=== PATIENT | male | born 1965 | race Caucasian/White ===

== ENCOUNTER 2017-11-03 20:36 | Inpatient (IN) | payer BC ==
[2017-11-03] MEDS ORDERED: Lidocaine 1% with EPINEPHrine 1:100,000 50 ML MDV SUBCUT STA (21:26)
--- NOTE | 2017-11-03 21:32 | EDM.PDOC ---
ED HPI GENERAL MEDICAL PROBLEM - General Chief Complaint: Skin Complaint Stated Complaint: WENT TO CLINIC NOT GETTING BETTER Time Seen by Provider: 11/03/17 21:15 Source of Information: Reports: Patient, RN History Limitations: Reports: No Limitations - History of Present Illness INITIAL COMMENTS - FREE TEXT/NARRATIVE: 52 yo male fell on the ice recently injuring his R elbow area with a small wound resulting. Since then he has developed cellulitis and was first given cephalexin with worsening followed by Rocephin and clindamycin(both yesterday) with continued worsening. He was then today directed to come to the ER for evaluation and tx. He feels he has had fever and chills. He is not diabetic. No hx of previous cellulitis. Onset: Gradual Onset Date: 10/31/17 Duration: Day(s):, Getting Worse Location: Reports: Upper Extremity, Right Quality: Reports: Dull Severity: Moderate Improves with: Reports: None Worsens with: Reports: Other (time) Context: Reports: Other (known cellulitis) Associated Symptoms: Reports: Fever/Chills. 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: Other (see below) (antibiotics(see HPI)) right arm Pain Score (Numeric/FACES): 9 - Related Data Allergies Allergy/AdvReac Type Severity Reaction Status Date / Time Penicillins Allergy Vomiting Verified 11/03/17 21:07 Home Meds: Home Meds FLUoxetine HCl [Fluoxetine HCl] 20 mg PO BID 04/13/14 [History] Warfarin Sodium [Warfarin Sodium] 5 mg PO BEDTIME 04/13/14 [History] Cephalexin [Cephalexin] 500 mg PO QID 11/03/17 [History] Clindamycin HCl [Clindamycin HCl] 300 mg PO TID 11/03/17 [History] Past Medical History Cardiovascular History: Reports: Congenital Septal Defect Musculoskeletal History: Reports: Other (See Below) Other Musculoskeletal History: collar bone as a teen Neurological History: Reports: Concussion, CVA Psychiatric History: Reports: Anxiety Hematologic History: Reports: Anticoagulation Therapy - Infectious Disease History Infectious Disease History: Reports: Chicken Pox Social & Family History - Tobacco Use Smoking Status *Q: Never Smoker Second Hand Smoke Exposure: No - Caffeine Use Caffeine Use: Reports: Coffee - Alcohol Use Days Per Week of Alcohol Use: 2 Number of Drinks Per Day: 2 Total Drinks Per Week: 4 - Recreational Drug Use Recreational Drug Use: Yes Drug Use in Last 12 Months: No Recreational Drug Type: Reports: Marijuana/Hashish Recreational Drug Use Frequency: Not Used In Over 1 Year ED ROS GENERAL - Review of Systems Review Of Systems: See Below Constitutional: Reports: No Symptoms HEENT: Reports: No Symptoms Respiratory: Reports: No Symptoms Cardiovascular: Reports: No Symptoms GI/Abdominal: Reports: No Symptoms : Reports: No Symptoms Musculoskeletal: Reports: Joint Pain (R elbow area) Skin: Reports: Erythema (Large area spreading out from the olecranon. ) Neurological: Reports: No Symptoms ED EXAM, SKIN/RASH Exam: See Below Exam Limited By: No Limitations General Appearance: Alert, WD/WN, No Apparent Distress Eye Exam: Bilateral Eye: Normal Inspection Ears: Normal External Exam, Normal Canal, Hearing Grossly Normal Nose: Normal Inspection, Normal Mucosa, No Blood Throat/Mouth: Normal Inspection, Normal Lips, Normal Oropharynx, Normal Voice, No Airway Compromise Head: Atraumatic, Normocephalic Neck: Normal Inspection Respiratory/Chest: No Respiratory Distress, Lungs Clear, Normal Breath Sounds, No Accessory Muscle Use Cardiovascular: Regular Rate, Rhythm, No Edema GI/Abdominal: Non-Tender Back Exam: Normal Inspection Extremities: Limited Range of Motion (R elbow due to soft tissue swelling), Redness (R elbow area) Neurological: Alert, Oriented, CN II-XII Intact, Normal Cognition, No Motor/ Sensory Deficits Psychiatric: Normal Affect, Normal Mood Skin: Warm, Dry, Intact, No Rash, Erythema (with induration of the entire elbow area, suspected fluid filled R olecranon bursa. ) Location, Skin: Upper Extremity, Right Characteristics: Confluent, Erythematous Associated features: Warmth, Tenderness, Induration, Inflammation Lymphatic: No Adenopathy Course - Vital Signs Text/Narrative:: Aspirated R olecranon bursa after prep of area with Betadine and alcohol. Obtained about 2.5 ml of slightly cloudy yellow fluid. Last Recorded V/S: Last Vital Signs Temp 37.1 C 11/03/17 21:11 Pulse 94 11/03/17 21:11 Resp 16 11/03/17 21:11 BP 139/85 11/03/17 21:11 Pulse Ox 93 L 11/03/17 21:11 - Orders/Labs/Meds Orders: Active Orders 24 hr Category Date Time Status CULTURE BODY FLUID + SMEAR [RM] Stat Lab 11/03/17 21:43 Results Sodium Chloride 0.9% [Saline Flush] Med 11/03/17 21:54 Active 10 ml FLUSH ASDIRECTED PRN Vancomycin 1 gm Med 11/03/17 22:12 Active Sodium Chloride 0.9% [Normal Saline] 250 ml IV ONETIME Saline Lock Insert [OM.PC] Routine Oth 11/03/17 21:54 Ordered Medication Orders Vancomycin HCl 1 gm/ Sodium (Chloride) 250 mls @ 150 mls/hr IV ONETIME ONE Stop: 11/03/17 23:51 Last Admin: 11/03/17 22:25 Dose: 150 mls/hr Sodium Chloride (Saline Flush) 10 ml FLUSH ASDIRECTED PRN PRN Reason: Keep Vein Open Last Admin: 11/03/17 22:30 Dose: 10 ml Labs: Laboratory Tests 11/03/17 11/03/17 11/03/17 Range/Units 21:21 21:21 21:21 WBC 10.0 (4.5-11.0) K/uL RBC 4.66 (4.30-5.90) M/uL Hgb 13.7 (12.0-15.0) g/dL Hct 40.7 (40.0-54.0) % MCV 87 (80-98) fL MCH 29 (27-31) pg MCHC 34 (32-36) % Plt Count 179 (150-400) K/uL PT (9.5-12.0) sec INR (0.80-1.20) Sodium 140 (140-148) mmol/L Potassium 3.6 (3.6-5.2) mmol/L Chloride 105 (100-108) mmol/L Carbon Dioxide 21 (21-32) mmol/L Anion Gap 13.8 (5.0-14.0) mmol/L BUN 13 (7-18) mg/dL Creatinine 1.0 (0.8-1.3) mg/dL Est Cr Clr Drug Dosing 88.21 mL/min Estimated GFR (MDRD) > 60 (>60) Glucose 139 H (74-106) mg/dL Calcium 9.0 (8.5-10.1) mg/dL C-Reactive Protein 14.64 H (0.0-0.3) mg/dL 11/03/17 Range/Units 21:25 WBC (4.5-11.0) K/uL RBC (4.30-5.90) M/uL Hgb (12.0-15.0) g/dL Hct (40.0-54.0) % MCV (80-98) fL MCH (27-31) pg MCHC (32-36) % Plt Count (150-400) K/uL PT 17.8 H (9.5-12.0) sec INR 1.63 H (0.80-1.20) Sodium (140-148) mmol/L Potassium (3.6-5.2) mmol/L Chloride (100-108) mmol/L Carbon Dioxide (21-32) mmol/L Anion Gap (5.0-14.0) mmol/L BUN (7-18) mg/dL Creatinine (0.8-1.3) mg/dL Est Cr Clr Drug Dosing mL/min Estimated GFR (MDRD) (>60) Glucose (74-106) mg/dL Calcium (8.5-10.1) mg/dL C-Reactive Protein (0.0-0.3) mg/dL Meds: Medications Generic Name Dose Route Start Last Admin Trade Name Freq PRN Reason Stop Dose Admin Vancomycin HCl 1 gm/ Sodium 250 mls @ 150 mls/hr 11/03/17 22:12 11/03/17 22: 25 Chloride IV 11/03/17 23:51 150 mls/hr ONETIME ONE Administration Sodium Chloride 10 ml 11/03/17 21:54 11/03/17 22:30 Saline Flush FLUSH 10 ml ASDIRECTED PRN Administration Keep Vein Open Discontinued Medications Generic Name Dose Route Start Last Admin Trade Name Freq PRN Reason Stop Dose Admin Lidocaine/Epinephrine 3 ml 11/03/17 21:26 11/03/17 21:33 Xylocaine 1% With Epinephrine 1:100,000 SUBCUT 11/03/17 21:27 3 ml NOW STA Administration Vancomycin HCl 1 gm 11/03/17 22:00 Vancomycin IV .PHARMACY TO DOSE [facility] Departure - Departure Time of Disposition: 22:55 Disposition: Admitted As Inpatient 65 Condition: Fair Clinical Impression: Cellulitis of right elbow Olecranon bursitis Qualifiers: Laterality: right Qualified Code(s): M70.21 - Olecranon bursitis, right elbow - Discharge Information Referrals: Houston Blanco Sr, MD [Primary Care Provider] - Forms: ED Department Discharge - My Orders Last 24 Hours: My Active Orders 11/03/17 21:43 CULTURE BODY FLUID + SMEAR [RM] Stat 11/03/17 21:54 Sodium Chloride 0.9% [Saline Flush] 10 ml FLUSH ASDIRECTED PRN Saline Lock Insert [OM.PC] Routine 11/03/17 22:12 Vancomycin 1 gm Sodium Chloride 0.9% [Normal Saline] 250 ml IV ONETIME - Assessment/Plan Last 24 Hours: My Active Orders 11/03/17 21:43 CULTURE BODY FLUID + SMEAR [RM] Stat 11/03/17 21:54 Sodium Chloride 0.9% [Saline Flush] 10 ml FLUSH ASDIRECTED PRN Saline Lock Insert [OM.PC] Routine 11/03/17 22:12 Vancomycin 1 gm Sodium Chloride 0.9% [Normal Saline] 250 ml IV ONETIME
[2017-11-03] MEDS ORDERED: Sodium Chloride 0.9% 10 ML Syringe FLUSH PRN (21:54)
[2017-11-03] MEDS ORDERED: Vancomycin 1 GM SDV IV SCH ×2 (22:00→23:45)
--- NOTE | 2017-11-03 23:20 | PCM.HP ---
H&P History of Present Illness - General Date of Service: 11/03/17 Admit Problem/Dx: Source of Information: Patient, Family, Provider, RN Notes Reviewed History Limitations: Reports: No Limitations - History of Present Illness Initial Comments - Free Text/Narative: Mr. Curtis is a 52-year-old gentleman who is admitted through the emergency department for further evaluation and management of cellulitis of the right arm. Proximally 2 weeks ago he fell injuring the arm, over the past several days is noted tenderness and erythema with increased warmth. This week has been seen twice in the walk-in clinic, initially was started on Ceftin and when the infection did not improve over a period of 2 days he presented to the walk-in clinic again yesterday. At that time he was given a dose of IM Rocephin and switched to clindamycin as oral antibiotic therapy. Despite these changes there' s been further progression of the cellulitis with associated fever, chills, and sweats. Because of progression he presented to the emergency department this evening and was noted to have a relatively large area of cellulitis involving the extensor surface of the arm and extending into the upper arm as well as quite a ways into the lower arm. The olecranon bursa was enlarged and inflamed, this was aspirated in the emergency department and fluid sent for culture. He denies any previous history of MRSA or other resistant bacteria. right arm Pain Score (Numeric/FACES): 9 - Related Data Allergies/Adverse Reactions: Allergies Allergy/AdvReac Type Severity Reaction Status Date / Time Penicillins Allergy Vomiting Verified 11/03/17 21:07 Home Medications: Home Meds FLUoxetine HCl [Fluoxetine HCl] 20 mg PO BID 04/13/14 [History] Warfarin Sodium [Warfarin Sodium] 5 mg PO BEDTIME 04/13/14 [History] Cephalexin [Cephalexin] 500 mg PO QID 11/03/17 [History] Clindamycin HCl [Clindamycin HCl] 300 mg PO TID 11/03/17 [History] Past Medical History Cardiovascular History: Reports: Congenital Septal Defect Musculoskeletal History: Reports: Other (See Below) Other Musculoskeletal History: collar bone as a teen Neurological History: Reports: Concussion, CVA Psychiatric History: Reports: Anxiety Hematologic History: Reports: Anticoagulation Therapy - Infectious Disease History Infectious Disease History: Reports: Chicken Pox Social & Family History - Tobacco Use Smoking Status *Q: Never Smoker Second Hand Smoke Exposure: No - Caffeine Use Caffeine Use: Reports: Coffee - Alcohol Use Days Per Week of Alcohol Use: 2 Number of Drinks Per Day: 2 Total Drinks Per Week: 4 - Recreational Drug Use Recreational Drug Use: Yes Drug Use in Last 12 Months: No Recreational Drug Type: Reports: Marijuana/Hashish Recreational Drug Use Frequency: Not Used In Over 1 Year H&P Review of Systems - Review of Systems: Review Of Systems: See Below General: Reports: Fever, Chills, Diaphoresis, Decreased Appetite HEENT: Reports: No Symptoms Pulmonary: Reports: No Symptoms Cardiovascular: Reports: No Symptoms Gastrointestinal: Reports: No Symptoms Genitourinary: Reports: No Symptoms Musculoskeletal: Reports: No Symptoms Skin: Reports: Other (Erythema pain and swelling right arm) Psychiatric: Reports: No Symptoms Neurological: Reports: No Symptoms Hematologic/Lymphatic: Reports: No Symptoms Immunologic: Reports: No Symptoms Exam - Exam Exam: See Below - Vital Signs Vital Signs: Last Vital Signs Temp 99.3 F 11/03/17 22:53 Pulse 78 11/03/17 22:53 Resp 16 11/03/17 22:53 BP 133/86 11/03/17 22:53 Pulse Ox 94 L 11/03/17 22:53 Weight: 232 lb 12.93 oz - Exam Quality Assessment: DVT Prophylaxis General: Alert, Oriented, Cooperative, Moderate Distress HEENT: Conjunctiva Clear, Hearing Intact, Normal Nasal Septum, Posterior Pharynx Clear, Pupils Equal. No: Mucosa Moist & [place] Neck: Supple, Trachea Midline, +2 Carotid Pulse wo Bruit Lungs: Clear to Auscultation, Normal Respiratory Effort Cardiovascular: Regular Rate, Regular Rhythm, Normal S1, Normal S2. No: Systolic Murmur, Diastolic Murmur GI/Abdominal Exam: Soft, Non-Tender, No Organomegaly, No Distention Back Exam: Normal Inspection, Full Range of Motion Extremities: Other (Significant erythema inflammation and swelling extensor surface right arm) Skin: Other (As above) Neurological: Cranial Nerves Intact, Strength Equal Bilateral, Normal Speech, Normal Tone, Sensation Intact. No: Focal Deficit Neuro Extensive - Mental Status: Alert, Oriented x3, Normal Mood/Affect, Normal Cognition, Memory Intact - Patient Data Lab Results Last 24 hrs: Laboratory Results - last 24 hr 11/03/17 11/03/17 11/03/17 Range/Units 21:21 21:21 21:21 WBC 10.0 (4.5-11.0) K/uL RBC 4.66 (4.30-5.90) M/uL Hgb 13.7 (12.0-15.0) g/dL Hct 40.7 (40.0-54.0) % MCV 87 (80-98) fL MCH 29 (27-31) pg MCHC 34 (32-36) % Plt Count 179 (150-400) K/uL PT (9.5-12.0) sec INR (0.80-1.20) Sodium 140 (140-148) mmol/L Potassium 3.6 (3.6-5.2) mmol/L Chloride 105 (100-108) mmol/L Carbon Dioxide 21 (21-32) mmol/L Anion Gap 13.8 (5.0-14.0) mmol/L BUN 13 (7-18) mg/dL Creatinine 1.0 (0.8-1.3) mg/dL Est Cr Clr Drug Dosing 88.21 mL/min Estimated GFR (MDRD) > 60 (>60) Glucose 139 H (74-106) mg/dL Calcium 9.0 (8.5-10.1) mg/dL C-Reactive Protein 14.64 H (0.0-0.3) mg/dL 11/03/17 Range/Units 21:25 WBC (4.5-11.0) K/uL RBC (4.30-5.90) M/uL Hgb (12.0-15.0) g/dL Hct (40.0-54.0) % MCV (80-98) fL MCH (27-31) pg MCHC (32-36) % Plt Count (150-400) K/uL PT 17.8 H (9.5-12.0) sec INR 1.63 H (0.80-1.20) Sodium (140-148) mmol/L Potassium (3.6-5.2) mmol/L Chloride (100-108) mmol/L Carbon Dioxide (21-32) mmol/L Anion Gap (5.0-14.0) mmol/L BUN (7-18) mg/dL Creatinine (0.8-1.3) mg/dL Est Cr Clr Drug Dosing mL/min Estimated GFR (MDRD) (>60) Glucose (74-106) mg/dL Calcium (8.5-10.1) mg/dL C-Reactive Protein (0.0-0.3) mg/dL Result Diagrams: 11/03/17 21:21 11/03/17 21:21 [place] Results Last 24 hrs: Microbiology 11/03/17 21:43 Gram Stain - Final Bursa - Elbow, Right *Q Meaningful Use (ADM) - VTE *Q VTE Criteria *Q: VTE Pharmacological Contraindications *Q: High INR Value - VTE Risk Assess *Q Each Risk Factor Represents 1 Point: Age 41 - 59 years, Obesity ( BMI > 25 kg/m2 ) Total Score 1 Point Risk Factors: 2 Each Risk Factor Represents 2 Points: None Total Score 2 Point Risk Factors: 0 Each Risk Factor Represents 3 Points: None Total Score 3 Point Risk Factors: 0 Each Risk Factor Represents 5 Points: None Total Score 5 Point Risk Factors: 0 Venous Thromboembolism Risk Factor Score *Q: 2 - Stroke *Q Stroke Criteria *Q: - AMI *Q AMI Criteria *Q: Problem List Initiated/Reviewed/Updated: Yes Orders Last 24hrs: Active Orders 24 hr Category Date Time Status Patient Status Manage Transfer [TRANSFER] Routine ADT 11/03/17 23:11 Ordered CULTURE BODY FLUID + SMEAR [RM] Stat Lab 11/03/17 21:43 Results Sodium Chloride 0.9% [Saline Flush] Med 11/03/17 21:54 Active 10 ml FLUSH ASDIRECTED PRN Vancomycin 1 gm Med 11/03/17 22:12 Active Sodium Chloride 0.9% [Normal Saline] 250 ml IV ONETIME Saline Lock Insert [OM.PC] Routine Oth 11/03/17 21:54 Ordered Resuscitation Status Routine Resus Stat 11/03/17 23:13 Ordered Medication Orders Vancomycin HCl 1 gm/ Sodium (Chloride) 250 mls @ 150 mls/hr IV ONETIME ONE Stop: 11/03/17 23:51 Last Admin: 11/03/17 22:25 Dose: 150 mls/hr Sodium Chloride (Saline Flush) 10 ml FLUSH ASDIRECTED PRN PRN Reason: Keep Vein Open Last Admin: 11/03/17 22:30 Dose: 10 ml Assessment/Plan Comment:: ASSESSMENT AND PLAN CELLULITIS RIGHT ARM-involving a significant area of the extensor surface. Having failed outpatient management with appropriate oral antibiotic therapy. Question possible involvement of the olecranon bursa, drained in the emergency department. -Blood cultures and culture from bursa pending -IV fluids for hydration -Pain and antiemetic therapy as needed -Broad-spectrum IV antibiotic therapy pending culture results, vancomycin and meropenem ATRIAL SEPTAL DEFECT WITH HISTORY OF PREVIOUS CVA-on long-term oral anticoagulation with warfarin, minimal residual neurologic effect from CVA -Continue outpatient dosing of warfarin -Daily INR MAINTENANCE ISSUES -DVT prophylaxis; current therapy with warfarin should provide adequate DVT prophylaxis -GI prophylaxis; not indicated -Gupta catheter; not indicated -Nutrition; regular diet -Nicotine dependence; not required CODE STATUS-FULL CODE ADMISSION STATUS-patient will be admitted to inpatient status, expect at least a 2 night hospital stay for evaluation and management of problems as outlined above. At the time of this admission I do not reasonably expected evaluation and management of this problem will require more than a 96 hour hospital stay. DISPOSITION-anticipate discharge to home after the hospital stay. PRIMARY CARE PROVIDER-Dr. Blanco
[2017-11-03] MEDS ORDERED: Lactated Ringers 500 ML IV ONE (23:36)
[2017-11-03] MEDS ORDERED: Magnesium Hydroxide 400 MG/5 ML Susp 30 ML Cup PO PRN (23:36)
[2017-11-03] MEDS ORDERED: Ondansetron 4 MG/2 ML SDV IV PRN (23:36)
[2017-11-03] MEDS ORDERED: HYDROmorphone 0.5 MG/0.5 ML Syringe IVPUSH PRN (23:36)
[2017-11-03] MEDS ORDERED: Ibuprofen 400 MG Tab PO PRN (23:36)
[2017-11-03] MEDS ORDERED: Polyethylene Glycol 3350 Powder 17 GM Packet PO PRN (23:36)
[2017-11-04] MEDS: Acetaminophen 325 MG Tab PO PRN ×3 (00:08→20:57)
[2017-11-04] MEDS: Meropenem 1 GM in Sodium Chloride 0.9% 100 ML IV SCH ×2 (00:13→00:17)
[2017-11-04] MEDS ORDERED: Lactated Ringers 1,000 ML IV SCH (03:15)
[2017-11-04] MEDS ORDERED: FLUoxetine 20 MG Cap PO SCH (09:00)
--- NOTE | 2017-11-04 11:49 | PCM.PN ---
- General Info Date of Service: 11/04/17 Subjective Update: Mr. Curtis has been stable since admission, he is been afebrile with stable vital signs. White blood cell count has remained normal and there has been significant improvement in the area of cellulitis. Overall he feels significantly better appetite has improved and he is had no chills or sweats. - Review of Systems General: Denies: Fever, Chills Pulmonary: Reports: No Symptoms Cardiovascular: Reports: No Symptoms Gastrointestinal: Reports: No Symptoms Skin: Reports: Other (Inflammation in the erythema extensor surface right arm) - Patient Data Vitals - Most Recent: Last Vital Signs Temp 97 F 11/04/17 07:24 Pulse 74 11/04/17 07:24 Resp 17 11/04/17 07:24 BP 115/71 11/04/17 07:24 Pulse Ox 96 11/04/17 07:24 Weight - Most Recent: 232 lb 12.93 oz I&O - Last 24 Hours: Intake & Output 11/03/17 11/04/17 11/04/17 22:59 06:59 14:59 Intake Total 876 660 Balance 876 660 Lab Results Last 24 Hours: Laboratory Results - last 24 hr 11/04/17 11/04/17 11/04/17 Range/Units 04:50 04:50 04:50 WBC 8.1 (4.5-11.0) K/uL RBC 4.42 (4.30-5.90) M/uL Hgb 13.0 (12.0-15.0) g/dL Hct 39.1 L (40.0-54.0) % MCV 89 (80-98) fL MCH 29 (27-31) pg MCHC 33 (32-36) % Plt Count 185 (150-400) K/uL Neut % (Auto) 62 (36-66) % Lymph % (Auto) 24 (24-44) % [place] % (Auto) 12 H (2-6) % Eos % (Auto) 2 (2-4) % Baso % (Auto) 0 (0-1) % PT 21.5 H (9.5-12.0) sec INR 1.95 H (0.80-1.20) Sodium 139 L (140-148) mmol/L Potassium 4.4 (3.6-5.2) mmol/L Chloride 105 (100-108) mmol/L Carbon Dioxide 28 (21-32) mmol/L Anion Gap 10.4 (5.0-14.0) mmol/L BUN 11 (7-18) mg/dL Creatinine 1.1 (0.8-1.3) mg/dL Est Cr Clr Drug Dosing 80.39 mL/min Estimated GFR (MDRD) > 60 (>60) Glucose 105 (74-106) mg/dL Calcium 8.5 (8.5-10.1) mg/dL Med Orders - Current: Current Medications Acetaminophen (Tylenol) 650 mg PO Q4H PRN PRN Reason: Pain (Mild 1-3)/fever Last Admin: 11/04/17 07:45 Dose: 650 mg Fluoxetine HCl (Prozac) 40 mg PO BEDTIME [facility] Hydromorphone HCl (Dilaudid) 0.5 mg IVPUSH Q2H PRN PRN Reason: Pain Vancomycin HCl 1.5 gm/ Sodium (Chloride) 250 mls @ 166.667 mls/hr IV Q12H [facility] Last Admin: 11/04/17 09:55 Dose: 166.667 mls/hr Meropenem 1 gm/ Sodium (Chloride) 50 mls @ 100 mls/hr IV Q8H [facility] Last Admin: 11/04/17 08:58 Dose: 100 mls/hr Ibuprofen (Motrin) 400 mg PO Q6H PRN PRN Reason: Pain (mild 1-3) Magnesium Hydroxide (Milk Of Magnesia) 30 ml PO Q12H PRN PRN Reason: Constipation Ondansetron HCl (Zofran) 4 mg IV Q4H PRN PRN Reason: Nausea/Vomiting Oxycodone HCl (Oxycodone) 10 mg PO Q4H PRN PRN Reason: Pain (moderate 4-6) Polyethylene Glycol (Miralax) 17 gm PO DAILY PRN PRN Reason: Constipation Senna/Docusate Sodium (Senna Plus) 1 tab PO BID PRN PRN Reason: Constipation Warfarin Sodium (Coumadin) 5 mg PO DAILY@1300 [facility] Discontinued Medications Vancomycin HCl 1 gm/ Sodium (Chloride) 250 mls @ 150 mls/hr IV ONETIME ONE Stop: 11/03/17 23:51 Last Admin: 11/03/17 22:25 Dose: 150 mls/hr Lactated Ringer's (Ringers, Lactated) 500 mls @ 250 mls/hr IV ONETIME ONE Stop: 11/04/17 01:35 Last Admin: 11/04/17 01:14 Dose: 250 mls/hr Lactated Ringer's (Ringers, Lactated) 1,000 mls @ 125 mls/hr IV ASDIRECTED [facility] Last Admin: 11/04/17 03:21 Dose: 125 mls/hr Meropenem 1 gm/ Sodium (Chloride) 100 mls @ 200 mls/hr IV Q8H [facility] Last Admin: 11/04/17 00:17 Dose: 200 mls/hr Lidocaine/Epinephrine (Xylocaine 1% With Epinephrine 1:100,000) 3 ml SUBCUT NOW STA Stop: 11/03/17 21:27 Last Admin: 11/03/17 21:33 Dose: 3 ml Sodium Chloride (Saline Flush) 10 ml FLUSH ASDIRECTED PRN PRN Reason: Keep Vein Open Last Admin: 11/03/17 22:30 Dose: 10 ml Vancomycin HCl (Vancomycin) 1 gm IV .PHARMACY TO DOSE [facility] Stop: 11/04/17 04:00 - Exam Quality Assessment: DVT Prophylaxis General: Alert, Oriented, Cooperative, No Acute Distress Lungs: Clear to Auscultation, Normal Respiratory Effort Cardiovascular: Regular Rate, Regular Rhythm, No Murmurs GI/Abdominal Exam: Soft, Non-Tender, No Organomegaly, No Distention Extremities: Other (Significant improvement in area of cellulitis involving the extensor surface of the right arm) - Problem List Review Problem List Initiated/Reviewed/Updated: Yes - My Orders Last 24 Hours: My Active Orders 11/03/17 23:13 Resuscitation Status Routine 11/03/17 23:36 Patient Status [ADT] Routine Ambulate [RC] QID Height and Weight [RC] DAILY Intake and Output [RC] QSHIFT Notify Provider Vital Signs [RC] ASDIRECTED Oxygen Therapy [RC] PRN Up ad [place] [RC] ASDIRECTED Up to Chair [RC] QID VTE/DVT Education [RC] Per Unit Routine Vital Signs [RC] Q4H Acetaminophen [Tylenol] 650 mg PO Q4H PRN Docusate Sodium/Sennosides [Senna Plus] 1 tab PO BID PRN HYDROmorphone [Dilaudid] 0.5 mg IVPUSH Q2H PRN Ibuprofen [Motrin] 400 mg PO Q6H PRN Magnesium Hydroxide [Milk of Magnesia] 30 ml PO Q12H PRN Ondansetron [Zofran] 4 mg IV Q4H PRN Polyethylene Glycol 3350 [MiraLAX] 17 gm PO DAILY PRN oxyCODONE 10 mg PO Q4H PRN Blood Culture x2 Reflex Set [OM.PC] Stat VTE Pharmacological Contraindications [AST] Per Unit Routine 11/03/17 23:40 CULTURE BLOOD [BC] Stat 11/03/17 23:50 CULTURE BLOOD [BC] Stat 11/03/17 Dinner Regular Diet [DIET] 11/04/17 08:30 Meropenem [Merrem] 1 gm Sodium Chloride 0.9% [Normal Saline] 50 ml IV Q8H 11/04/17 10:00 Vancomycin 1.5 gm Sodium Chloride 0.9% [Normal Saline] 250 ml IV Q12H 11/04/17 11:45 Convert IV to Saline Lock [OM.PC] Routine 11/04/17 21:00 FLUoxetine [PROzac] 40 mg PO BEDTIME 11/05/17 09:30 VANCOMYCIN TROUGH [CHEM] Timed 11/05/17 23:36 INR,PT,PROTHROMBIN TIME [COAG] DAILY 11/06/17 23:36 INR,PT,PROTHROMBIN TIME [COAG] DAILY 11/07/17 23:36 INR,PT,PROTHROMBIN TIME [COAG] DAILY - Plan Plan:: ASSESSMENT AND PLAN CELLULITIS RIGHT ARM-improved since admission with less erythema and swelling, area of infection has decreased significantly since admission -Blood cultures and culture from bursa pending -Saline lock IV -Pain and antiemetic therapy as needed -Broad-spectrum IV antibiotic therapy pending culture results, vancomycin and meropenem ATRIAL SEPTAL DEFECT WITH HISTORY OF PREVIOUS CVA-INR improved from admission, still mildly subtherapeutic -Continue outpatient dosing of warfarin -Daily INR MAINTENANCE ISSUES -DVT prophylaxis; current therapy with warfarin should provide adequate DVT prophylaxis -GI prophylaxis; not indicated -Gupta catheter; not indicated -Nutrition; regular diet -Nicotine dependence; not required CODE STATUS-FULL CODE ADMISSION STATUS-patient will be admitted to inpatient status, expect at least a 2 night hospital stay for evaluation and management of problems as outlined above. At the time of this admission I do not reasonably expected evaluation and management of this problem will require more than a 96 hour hospital stay. DISPOSITION-anticipate discharge to home after the hospital stay. PRIMARY CARE PROVIDER-Dr. Blanco
[2017-11-04] MEDS ORDERED: Warfarin 5 MG Tab PO SCH (13:00)
[2017-11-04] MEDS: oxyCODONE 5 MG Tab PO PRN (20:57)
[2017-11-04] MEDS: FLUoxetine 20 MG Cap PO SCH (20:59)
[2017-11-05] MEDS: Vancomycin 1.65 GM in Sodium Chloride 0.9% 250 ML IV SCH ×2 (11:18→23:28)
--- NOTE | 2017-11-05 11:58 | PCM.PN ---
- General Info Date of Service: 11/05/17 Subjective Update: Mr. Curtis has been stable since yesterday, no significant temperature elevations and stable vital signs. Swelling and discomfort in the right arm have improved. Culture from the olecranon bursa is growing gram-positive cocci, final ID and sensitivities pending. Blood cultures remain negative. - Patient Data Vitals - Most Recent: Last Vital Signs Temp 96.5 F 11/05/17 10:37 Pulse 73 11/05/17 10:37 Resp 16 11/05/17 10:37 BP 118/71 11/05/17 10:37 Pulse Ox 97 11/05/17 10:37 Weight - Most Recent: 232 lb 12.93 oz I&O - Last 24 Hours: Intake & Output 11/04/17 11/05/17 11/05/17 22:59 06:59 14:59 Intake Total 730 550 Balance 730 550 Lab Results Last 24 Hours: Laboratory Results - last 24 hr 11/05/17 11/05/17 Range/Units 05:00 09:30 PT 18.6 H (9.5-12.0) sec INR 1.70 H (0.80-1.20) Creatinine 1.1 (0.8-1.3) mg/dL Est Cr Clr Drug Dosing 80.39 mL/min Estimated GFR (MDRD) > 60 (>60) Vancomycin Trough 10.8 (10.0-20.0) ug/mL [place] Results Last 24 Hours: Microbiology 11/03/17 23:50 Aerobic Blood Culture - Preliminary Blood - Venous - Lab Draw NO GROWTH AFTER 1 DAY Anaerobic Blood Culture - Preliminary NO GROWTH AFTER 1 DAY 11/03/17 23:40 Aerobic Blood Culture - Preliminary Blood - Venous NO GROWTH AFTER 1 DAY Anaerobic Blood Culture - Preliminary NO GROWTH AFTER 1 DAY Med Orders - Current: Current Medications Acetaminophen (Tylenol) 650 mg PO Q4H PRN PRN Reason: Pain (Mild 1-3)/fever Last Admin: 11/04/17 20:57 Dose: 650 mg Fluoxetine HCl (Prozac) 40 mg PO BEDTIME [facility] Last Admin: 11/04/17 20:59 Dose: 40 mg Hydromorphone HCl (Dilaudid) 0.5 mg IVPUSH Q2H PRN PRN Reason: Pain Meropenem 1 gm/ Sodium (Chloride) 50 mls @ 100 mls/hr IV Q8H [facility] Last Admin: 11/05/17 08:29 Dose: 100 mls/hr Vancomycin HCl 1.65 gm/ Sodium (Chloride) 250 mls @ 166.667 mls/hr IV Q12H [facility] Last Admin: 11/05/17 11:18 Dose: 166.667 mls/hr Ibuprofen (Motrin) 400 mg PO Q6H PRN PRN Reason: Pain (mild 1-3) Magnesium Hydroxide (Milk Of Magnesia) 30 ml PO Q12H PRN PRN Reason: Constipation Ondansetron HCl (Zofran) 4 mg IV Q4H PRN PRN Reason: Nausea/Vomiting Oxycodone HCl (Oxycodone) 10 mg PO Q4H PRN PRN Reason: Pain (moderate 4-6) Last Admin: 11/04/17 20:57 Dose: 10 mg Polyethylene Glycol (Miralax) 17 gm PO DAILY PRN PRN Reason: Constipation Senna/Docusate Sodium (Senna Plus) 1 tab PO BID PRN PRN Reason: Constipation Warfarin Sodium (Coumadin) 7.5 mg PO ONETIME ONE Stop: 11/05/17 11:55 Discontinued Medications Vancomycin HCl 1 gm/ Sodium (Chloride) 250 mls @ 150 mls/hr IV ONETIME ONE Stop: 11/03/17 23:51 Last Admin: 11/03/17 22:25 Dose: 150 mls/hr Lactated Ringer's (Ringers, Lactated) 500 mls @ 250 mls/hr IV ONETIME ONE Stop: 11/04/17 01:35 Last Admin: 11/04/17 01:14 Dose: 250 mls/hr Lactated Ringer's (Ringers, Lactated) 1,000 mls @ 125 mls/hr IV ASDIRECTED [facility] Last Admin: 11/04/17 03:21 Dose: 125 mls/hr Meropenem 1 gm/ Sodium (Chloride) 100 mls @ 200 mls/hr IV Q8H [facility] Last Admin: 11/04/17 00:17 Dose: 200 mls/hr Vancomycin HCl 1.5 gm/ Sodium (Chloride) 250 mls @ 166.667 mls/hr IV Q12H [facility] Last Admin: 11/04/17 22:01 Dose: 166.667 mls/hr Lidocaine/Epinephrine (Xylocaine 1% With Epinephrine 1:100,000) 3 ml SUBCUT NOW STA Stop: 11/03/17 21:27 Last Admin: 11/03/17 21:33 Dose: 3 ml Sodium Chloride (Saline Flush) 10 ml FLUSH ASDIRECTED PRN PRN Reason: Keep Vein Open Last Admin: 11/03/17 22:30 Dose: 10 ml Vancomycin HCl (Vancomycin) 1 gm IV .PHARMACY TO DOSE [place] Stop: 11/04/17 04:00 Warfarin Sodium (Coumadin) 5 mg PO DAILY@1300 [facility] Last Admin: 11/04/17 13:01 Dose: 5 mg - Exam General: Alert, Oriented, Cooperative, No Acute Distress Lungs: Clear to Auscultation, Normal Respiratory Effort Cardiovascular: Regular Rate, Regular Rhythm, No Murmurs GI/Abdominal Exam: Soft, Non-Tender, No Organomegaly, No Distention Extremities: Other (Persistent edema extensor surface of the right arm with arterial improvement of warmth and erythema) - Problem List Review Problem List Initiated/Reviewed/Updated: Yes - My Orders Last 24 Hours: My Active Orders 11/04/17 11:45 Convert IV to Saline Lock [OM.PC] Routine 11/04/17 21:00 FLUoxetine [PROzac] 40 mg PO BEDTIME 11/05/17 11:00 Vancomycin 1.65 gm Sodium Chloride 0.9% [Normal Saline] 250 ml IV Q12H 11/05/17 11:54 Warfarin [Coumadin] 7.5 mg PO ONETIME ONE 11/06/17 05:11 INR,PT,PROTHROMBIN TIME [COAG] AM - Plan Plan:: ASSESSMENT AND PLAN CELLULITIS RIGHT ARM-further improvement over the past 24 hours, there is persistent edema, erythema significantly improved. Fluid from bursa is growing gram-positive cocci, final ID and sensitivities pending -Blood cultures and culture from bursa pending -Saline lock IV -Pain and antiemetic therapy as needed -Broad-spectrum IV antibiotic therapy pending culture results, vancomycin and meropenem ATRIAL SEPTAL DEFECT WITH HISTORY OF PREVIOUS CVA-INR improved from admission, still mildly subtherapeutic -Increase warfarin to 7.5 mg today -Daily INR MAINTENANCE ISSUES -DVT prophylaxis; current therapy with warfarin should provide adequate DVT prophylaxis -GI prophylaxis; not indicated -Gupta catheter; not indicated -Nutrition; regular diet -Nicotine dependence; not required CODE STATUS-FULL CODE ADMISSION STATUS-patient will be admitted to inpatient status, expect at least a 2 night hospital stay for evaluation and management of problems as outlined above. At the time of this admission I do not reasonably expected evaluation and management of this problem will require more than a 96 hour hospital stay. DISPOSITION-anticipate discharge to home after the hospital stay. PRIMARY CARE PROVIDER-Dr. Blanco
[2017-11-05] MEDS: Acetaminophen 325 MG Tab PO PRN ×2 (12:21→21:20)
[2017-11-05] MEDS: oxyCODONE 5 MG Tab PO PRN ×2 (12:22→21:20)
[2017-11-05] MEDS ORDERED: Warfarin 2.5 MG Tab PO ONE (13:00)
[2017-11-05] MEDS: FLUoxetine 20 MG Cap PO SCH (21:17)
[2017-11-06] MEDS: Vancomycin 1.65 GM in Sodium Chloride 0.9% 250 ML IV SCH (10:47)
--- NOTE | 2017-11-06 11:27 | PCM.DCSUM1 ---
Discharge Summary - Hospital Course Brief History: Mr. Curtis is a 52-year-old gentleman admitted through the emergency department for further evaluation and management of extensive cellulitis of the right upper extremity. - Discharge Data Discharge Date: 11/06/17 Discharge Disposition: Home, Self-Care 01 Condition: Fair - Discharge Diagnosis/Problem(s) (1) Cellulitis of right arm SNOMED Code(s): 243541591 ICD Code: L03.113 - CELLULITIS OF RIGHT UPPER LIMB Status: Acute Current Visit: Yes (2) Olecranon bursitis SNOMED Code(s): 743145065 ICD Code: M70.20 - OLECRANON BURSITIS, UNSPECIFIED ELBOW Status: Acute Current Visit: Yes Qualifiers: Laterality: right Qualified Code(s): M70.21 - Olecranon bursitis, right elbow (3) Congenital septal defect of heart SNOMED Code(s): 33459236 ICD Code: Q21.9 - CONGENITAL MALFORMATION OF CARDIAC SEPTUM, UNSPECIFIED Status: Chronic Current Visit: No (4) Current use of half-way anticoagulation SNOMED Code(s): 077085702 ICD Code: Z79.01 - ASSISTED (CURRENT) USE OF ANTICOAGULANTS Status: Chronic Current Visit: No - Patient Summary/Data Hospital Course: Mr. Curtis is a 52-year-old gentleman who was admitted through the emergency department for further evaluation and management of cellulitis of the right arm. Approximately 2 weeks prior to admission, he fell injuring the arm, over the past several days he had noted tenderness and erythema with increased warmth. This week has been seen twice in the walk-in clinic, initially was started on Ceftin and when the infection did not improve over a period of 2 days he presented to the walk-in clinic again yesterday. At that time he was given a dose of IM Rocephin and switched to clindamycin as oral antibiotic therapy. Despite these changes there's been further progression of the cellulitis with associated fever, chills, and sweats. Because of progression he presented to the emergency department on the evening of admission and was noted to have a relatively large area of cellulitis involving the extensor surface of the arm and extending into the upper arm as well as quite a ways into the lower arm. The olecranon bursa was enlarged and inflamed, this was aspirated in the emergency department and fluid sent for culture. He denies any previous history of MRSA or other resistant bacteria. There was no significant evidence of sepsis on admission. After blood cultures were obtained, as well as cultures from the olecranon bursa, he was started on broad-spectrum IV antibiotic therapy with vancomycin and meropenem. He was given IV fluids for hydration and pain medication as needed. Over the next 3 days of hospitalization the cellulitis resolved, he did have persistent inflammation and mild swelling of the right olecranon bursa. Orthopedic consult was not available during his hospital stay but this will be arranged for shortly after discharge to determine if anything further needs to be done with the olecranon bursitis and infection. Blood cultures remain negative throughout the hospital stay, culture from aspiration of the olecranon bursa did grow out staph aureus sensitive to most antibiotics. He will be discharged home on doxycycline 100 mg by mouth twice a day. Follow-up will be made in the orthopedic clinic for hopefully November 07. INR levels were monitored through the hospital stay and remained subtherapeutic, he will be on warfarin 5 mg daily on discharge. Follow-up INR level will be obtained at Dr. Blanco's clinic on November 08. Follow-up appointment will be made with Dr. Blanco within one week. Activity will be as tolerated and he will resume his usual diet. - Patient Instructions Diet: Usual Diet as Tolerated Activity: As Tolerated Other/Special Instructions: Please schedule follow-up appointment with Dr. Blanco within one week. Please schedule orthopedic consult concerning his right olecranon bursitis and infection. Please arrange for an INR level at Dr. Blanco's clinic for November 08. - Discharge Plan Prescriptions/Med Rec: Doxycycline [Vibramycin] 100 mg PO BID #14 cap Home Medications: Home Meds FLUoxetine HCl [Fluoxetine HCl] 40 mg PO BEDTIME 04/13/14 [History] Warfarin Sodium 5 mg PO BEDTIME 04/13/14 [History] Doxycycline [Vibramycin] 100 mg PO BID #14 cap 11/06/17 [Rx] Referrals: Houston Blanco Sr, MD [Primary Care Provider] - - Discharge Summary/Plan Comment DC Time >30 min.: No - Patient Data Vitals - Most Recent: Last Vital Signs Temp 97.5 F 11/06/17 07:08 Pulse 64 11/06/17 07:08 Resp 16 11/06/17 07:08 BP 121/83 11/06/17 07:08 Pulse Ox 100 11/06/17 07:08 Weight - Most Recent: 232 lb 12.93 oz I&O - Last 24 hours: Intake & Output 11/05/17 11/06/17 11/06/17 22:59 06:59 14:59 Intake Total 2350 300 500 Balance 2350 300 500 Lab Results - Last 24 hrs: Laboratory Results - last 24 hr 11/06/17 Range/Units 05:30 PT 18.5 H (9.5-12.0) sec INR 1.69 H (0.80-1.20) [place] Results - Last 24 hrs: Microbiology 11/03/17 23:50 Aerobic Blood Culture - Preliminary Blood - Venous - Lab Draw NO GROWTH AFTER 2 DAYS Anaerobic Blood Culture - Preliminary NO GROWTH AFTER 2 DAYS 11/03/17 23:40 Aerobic Blood Culture - Preliminary Blood - Venous NO GROWTH AFTER 2 DAYS Anaerobic Blood Culture - Preliminary NO GROWTH AFTER 2 DAYS Med Orders - Current: Current Medications Acetaminophen (Tylenol) 650 mg PO Q4H PRN PRN Reason: Pain (Mild 1-3)/fever Last Admin: 11/05/17 21:20 Dose: 650 mg Fluoxetine HCl (Prozac) 40 mg PO BEDTIME [facility] Last Admin: 11/05/17 21:17 Dose: 40 mg Hydromorphone HCl (Dilaudid) 0.5 mg IVPUSH Q2H PRN PRN Reason: Pain Meropenem 1 gm/ Sodium (Chloride) 50 mls @ 100 mls/hr IV Q8H [facility] Last Admin: 11/06/17 07:36 Dose: 100 mls/hr Vancomycin HCl 1.65 gm/ Sodium (Chloride) 250 mls @ 166.667 mls/hr IV Q12H [facility] Last Admin: 11/06/17 10:47 Dose: 166.667 mls/hr Ibuprofen (Motrin) 400 mg PO Q6H PRN PRN Reason: Pain (mild 1-3) Magnesium Hydroxide (Milk Of Magnesia) 30 ml PO Q12H PRN PRN Reason: Constipation Ondansetron HCl (Zofran) 4 mg IV Q4H PRN PRN Reason: Nausea/Vomiting Oxycodone HCl (Oxycodone) 10 mg PO Q4H PRN PRN Reason: Pain (moderate 4-6) Last Admin: 11/05/17 21:20 Dose: 10 mg Polyethylene Glycol (Miralax) 17 gm PO DAILY PRN PRN Reason: Constipation Senna/Docusate Sodium (Senna Plus) 1 tab PO BID PRN PRN Reason: Constipation Discontinued Medications Vancomycin HCl 1 gm/ Sodium (Chloride) 250 mls @ 150 mls/hr IV ONETIME ONE Stop: 11/03/17 23:51 Last Admin: 11/03/17 22:25 Dose: 150 mls/hr Lactated Ringer's (Ringers, Lactated) 500 mls @ 250 mls/hr IV ONETIME ONE Stop: 11/04/17 01:35 Last Admin: 11/04/17 01:14 Dose: 250 mls/hr Lactated Ringer's (Ringers, Lactated) 1,000 mls @ 125 mls/hr IV ASDIRECTED [facility] Last Admin: 11/04/17 03:21 Dose: 125 mls/hr Meropenem 1 gm/ Sodium (Chloride) 100 mls @ 200 mls/hr IV Q8H [facility] Last Admin: 11/04/17 00:17 Dose: 200 mls/hr Vancomycin HCl 1.5 gm/ Sodium (Chloride) 250 mls @ 166.667 mls/hr IV Q12H [facility] Last Admin: 11/04/17 22:01 Dose: 166.667 mls/hr Lidocaine/Epinephrine (Xylocaine 1% With Epinephrine 1:100,000) 3 ml SUBCUT NOW STA Stop: 11/03/17 21:27 Last Admin: 11/03/17 21:33 Dose: 3 ml Sodium Chloride (Saline Flush) 10 ml FLUSH ASDIRECTED PRN PRN Reason: Keep Vein Open Last Admin: 11/03/17 22:30 Dose: 10 ml Vancomycin HCl (Vancomycin) 1 gm IV .PHARMACY TO DOSE [facility] Stop: 11/04/17 04:00 Warfarin Sodium (Coumadin) 5 mg PO DAILY@1300 [facility] Last Admin: 11/04/17 13:01 Dose: 5 mg Warfarin Sodium (Coumadin) 7.5 mg PO ONETIME ONE Stop: 11/05/17 13:01 Last Admin: 11/05/17 13:36 Dose: 7.5 mg - Exam Extremities: Other (Cellulitis in the right upper extremity has resolved, there is mild residual inflammation and tenderness of the right olecranon bursa.) *Q Meaningful Use (DIS) - VTE *Q VTE Criteria *Q: VTE Pharmacological Contraindications *Q: High INR Value - Stroke *Q Stroke Criteria *Q: - AMI *Q AMI Criteria *Q:
== END 2017-11-06 11:49 | disposition home or self-care (01) | DRG 383 ==
LOC: JP.ED 20:36 → JP.MS 23:11
PROVIDERS: ADMIT Hospitalist; ATTEND Hospitalist
PROC: 0M933ZX Drainage of Right Elbow Bursa and Ligament, Percutaneous Approach, Diagnostic (ICD-10-PCS; principal; 2017-11-03)
DX: L03.113 Cellulitis of right upper limb (principal); Q21.1 Atrial septal defect; Z86.73 Personal history of transient ischemic attack (TIA), and cerebral infarction without residual deficits; Z79.01 Long term (current) use of anticoagulants; Z88.0 Allergy status to penicillin; M70.21 Olecranon bursitis, right elbow; B95.62 Methicillin resistant Staphylococcus aureus infection as the cause of diseases classified elsewhere; W00.0XXA Fall on same level due to ice and snow, initial encounter; Y92.9 Unspecified place or not applicable
CPT/HCPCS: 36415; 80048; 80202; 82565; 85025; 85027; 85610; 86140; 87040; 87070; 87077; 87186; 87205; 96372; 96374; 99284-25; A9270-GY; J2185; J3370; J7030; J7050; J7120

== ENCOUNTER 2018-10-09 07:17 | Inpatient (IN) | payer BC ==
[~2018-10-09 07:17] MED LIST: Bupivacaine 0.5% 50 ML MDV ONE; Lidocaine 1% with EPINEPHrine 1:100,000 50 ML MDV ONE
[2018-10-09] MEDS ORDERED: Dextrose 5%-Lactated Ringers 1,000 ML IV SCH (07:30)
[2018-10-09] MEDS ORDERED: Succinylcholine 200 MG/10 ML MDV ONE (08:25)
[2018-10-09] MEDS ORDERED: Rocuronium 50 MG/5 ML Vial ONE (08:25)
[2018-10-09] MEDS ORDERED: Propofol 200 MG/20 ML SDV ONE (08:25)
[2018-10-09] MEDS ORDERED: Ondansetron 4 MG/2 ML SDV ONE (08:25)
[2018-10-09] MEDS ORDERED: fentaNYL 250 MCG/5 ML SDV ONE (08:25)
[2018-10-09] MEDS ORDERED: Dexamethasone 4 MG/ML SDV ONE (08:25)
[2018-10-09] MEDS ORDERED: ceFAZolin 2 GM in Sodium Chloride 0.9% 100 ML IV ONE (08:30)
[2018-10-09] MEDS ORDERED: Glycopyrrolate 0.2 MG/ML 5 ML MDV ONE (08:39)
[2018-10-09] MEDS ORDERED: Neostigmine Methylsulfate 1 MG/ML 5 ML Syringe ONE (08:39)
[2018-10-09] MEDS ORDERED: EPINEPHrine 1:10,000 1 MG/10 ML Syringe IV ONE ×3 (09:07→09:34)
[2018-10-09] MEDS ORDERED: ePHEDrine 50 MG/ML SDV ONE (09:52)
[2018-10-09] MEDS ORDERED: Iopamidol 755 Mg/ML 100 ML Bottle IV SCH (10:00)
[2018-10-09] MEDS ORDERED: ceFAZolin 2 GM in Premix Bag 1 BAG IV ONE (10:00)
[2018-10-09] MEDS ORDERED: Sodium Chloride 0.9% 100 ML IV SCH (10:00)
--- NOTE | 2018-10-09 10:19 | PCM.CONS ---
H&P History of Present Illness - General Date of Service: 10/09/18 Source of Information: Provider. No: Patient History Limitations: Reports: Altered Mental Status - History of Present Illness Initial Comments - Free Text/Narative: I was asked by Dr. Thakkar to see Uzair today after he had a cardiac arrest. He initially came to the hospital this morning to have a [place] filter placed in preparation for upcoming back surgery. He has a history of DVT and PEs. He has been chronically anticoagulated with warfarin but has been off of this for several days and his INR was normal this morning. Near the completion of the procedure after the IVC filter had been deployed the patient suffered a PEA arrest. He suddenly became very hypoxic. CPR was initiated and continued for less than 1 minute before the patient had a return of circulation. He did receive 1 dose of epinephrine for mild hypotension with systolic pressures in the 80s. He remained stable for a couple of minutes and a stat echocardiogram was obtained. This showed evidence for pericardial effusion (nearly 2 cm) but normal LV function and no significant evidence for tamponade at that point. He did receive 1 dose of Mikie-Synephrine with systolic blood pressures in the 80s. The plan was for transfer to the radiology suite for CT pulmonary angiogram but the patient had a second arrest. He received CPR for around 1 minute before he had a spontaneous return of circulation. Did receive a dose of epinephrine during the resuscitation. Once it stabilized after the second event he was taken to the radiology suite and had a CT scan of his chest. This did show evidence for a fairly large pericardial effusion. He was transferred to the intensive care unit. Blood pressures were on the low side of normal with systolic pressures in the 80s to 100s. He did get started on an epinephrine infusion and has responded well and this will be titrated down. He is satting 100% but he is currently on 100% FiO2. He remains sedated. I called and discussed the case with Dr. Kelly with cardiothoracic surgery at [facility]. The plan is for transfer by air to their facility for urgent intervention. He is intubated and lightly sedated. He is acutely ill and in need of immediate transfer. The risks of transfer are outweighed by the benefits of urgent intervention. Back Pain Score (Numeric/FACES): 10 - Related Data Allergies/Adverse Reactions: Allergies Allergy/AdvReac Type Severity Reaction Status Date / Time Penicillins Allergy Vomiting Verified 10/09/18 07:49 Home Medications: Home Meds FLUoxetine HCl [Fluoxetine HCl] 40 mg PO BEDTIME 04/13/14 [History] Warfarin Sodium 5 mg PO BEDTIME 04/13/14 [History] Past Medical History Cardiovascular History: Reports: Congenital Septal Defect Musculoskeletal History: Reports: Back Pain, Chronic, Other (See Below) Other Musculoskeletal History: collar bone as a teen Neurological History: Reports: Concussion, CVA Psychiatric History: Reports: Anxiety Hematologic History: Reports: Anticoagulation Therapy - Infectious Disease History Infectious Disease History: Reports: Chicken Pox - Past Surgical History Cardiovascular Surgical History: Reports: None GI Surgical History: Reports: EGD Neurological Surgical History: Reports: None Musculoskeletal Surgical History: Reports: None Social & Family History - Family History Family Medical History: Noncontributory Cardiac: Reports: Bypass, Stent Endocrine/Metabolic: Reports: Diabetes, Type I - Tobacco Use Smoking Status *Q: Never Smoker Second Hand Smoke Exposure: No - Caffeine Use Caffeine Use: Reports: None - Alcohol Use Days Per Week of Alcohol Use: 3 Number of Drinks Per Day: 2 Total Drinks Per Week: 6 Date of Last Drink: 10/06/18 Time of Last Drink: 18:00 - Recreational Drug Use Recreational Drug Use: No H&P Review of Systems - Review of Systems: Review Of Systems: Unable To Obtain Free Text/Narrative: Intubated and sedated Exam - Exam Exam: See Below - Vital Signs Vital Signs: Last Vital Signs Temp 36.8 C 10/09/18 08:07 Pulse 64 10/09/18 08:07 Resp 18 10/09/18 08:07 BP 138/92 H 10/09/18 08:07 Pulse Ox 93 L 10/09/18 08:07 Weight: 103.419 kg - Exam Quality Assessment: Supplemental Oxygen General: Sedated. No: Alert, Mild Distress HEENT: No: Mucosa Moist & [place] (dry), Scleral Icterus Neck: Supple, Trachea Midline. No: Lymphadenopathy Lungs: Clear to Auscultation, Normal Respiratory Effort Cardiovascular: Regular Rate, Regular Rhythm GI/Abdominal Exam: Soft, No Distention Extremities: No Pedal Edema Neuro Extensive - Mental Status: No: Alert Psychiatric: No: Alert - Patient Data Lab Results Last 24 hrs: Laboratory Results - last 24 hr 10/09/18 10/09/18 10/09/18 Range/Units 07:55 07:55 07:55 WBC 5.3 (4.5-11.0) K/uL RBC 4.64 (4.30-5.90) M/uL Hgb 14.2 (12.0-15.0) g/dL Hct 42.5 (40.0-54.0) % MCV 92 (80-98) fL MCH 31 (27-31) pg MCHC 33 (32-36) % Plt Count 160 (150-400) K/uL PT 11.0 (9.5-12.0) sec INR 1.00 (0.80-1.20) Sodium 142 (140-148) mmol/L Potassium 4.3 (3.6-5.2) mmol/L Chloride 105 (100-108) mmol/L Carbon Dioxide 27 (21-32) mmol/L Anion Gap 10.2 (5.0-14.0) mmol/L BUN 21 H (7-18) mg/dL Creatinine 1.0 (0.8-1.3) mg/dL Est Cr Clr Drug Dosing 87.19 mL/min Estimated GFR (MDRD) > 60 (>60) Glucose 106 (74-106) mg/dL Calcium 9.3 (8.5-10.1) mg/dL Phosphorus 2.5 (2.5-4.9) mg/dL Magnesium 1.8 (1.8-2.4) mg/dL Total Bilirubin 0.5 (0.2-1.0) mg/dL AST 25 (15-37) U/L ALT 32 (12-78) U/L Alkaline Phosphatase 57 (46-116) U/L Total Protein 7.0 (6.4-8.2) g/dL Albumin 3.3 L (3.4-5.0) g/dL Globulin 3.7 H (2.3-3.5) g/dL Albumin/Globulin Ratio 0.9 L (1.2-2.2) Result Diagrams: 10/09/18 07:55 10/09/18 07:55 Imaging Impressions Last 24 hrs: Echo with limited views - images personally reviewed - there appears to be a least moderate sized pericardial effusion. Left ventricle is hyperdynamic. Right ventricle is normal in size. CT pulmonary angiogram - there is evidence for a large pericardial effusion. Consult PN Assessment/Plan POD#: 0 Procedures: Procedures COMPLETE CBC W/AUTO DIFF WBC (08/08/18) COMPREHEN METABOLIC PANEL (08/08/18) CT HEAD/BRAIN W/O DYE (08/08/18) ELECTROCARDIOGRAM TRACING (08/08/18) EMERGENCY DEPT VISIT (08/08/18) MRI LUMBAR SPINE W/O DYE (07/21/18) NJX INTERLAMINAR LMBR/SAC (08/09/18) PROTHROMBIN TIME (08/08/18) ROUTINE VENIPUNCTURE (08/08/18) THER/PROPH/DIAG INJ SC/IM (08/08/18) X-RAY EXAM OF ANKLE (05/01/18) (1) Pericardial effusion with cardiac tamponade SNOMED Code(s): 967596099 Code(s): I31.3 - PERICARDIAL EFFUSION (NONINFLAMMATORY); I31.4 - CARDIAC TAMPONADE Current Visit: Yes Problem List Initiated/Reviewed/Updated: Yes My Orders Last 24 Hours: My Active Orders 10/09/18 10:10 HGB [HEMOGLOBIN] [HEME] Stat Plan: ASSESSMENT AND PLAN - Pericardial effusion with tamponade - likely result of surgical procedure to place a Neto filter. Patient had 2 episodes of PEA arrest after the filter was deployed. Echo and CT show large pericardial effusion. Patient would benefit from intervention to drain the pericardial fluid. He will be transferred to [facility] for urgent intervention. He is currently on a low- dose epinephrine infusion. He is receiving IV fluids. He is slightly sedated. He is intubated and mechanically ventilated. History of DVT and PE - had been chronically anticoagulated but INR on the day of procedure was 1. Jay Ulrich M.D. Requesting Provider: Dr. Thakkar Date Consult Requested: 10/09/18 Reason for Consult: PEA arrest Patient History Reviewed: Yes Admission H&P Reviewed: No (n/a) Notified Requestor: Yes Time Spent (in minutes): 80
--- NOTE | 2018-10-09 10:23 | CT ---
Ang Chest CLINICAL HISTORY: Respiratory arrest TECHNIQUE: Thin section axial contiguous tomographic sections were taken through the chest before and after 100 mL bolus IV iodinated contrast administration. Coronal and sagittal images were reconstructed. Auto dosage reduction and iterative reconstruction techniques employed. FINDINGS: There is relatively high density fluid in the pericardium consistent with hemopericardium. There is some dilatation of the inferior vena cava in the intrahepatic portion. Superior vena cava is also mildly prominent. The pulmonary arteries are free of filling defects or vessel cut off. Patient has bilateral pulmonary infiltrates with some areas of consolidation in the dependent portion of both upper and lower lobes. There is no significant pleural effusion. . There is an endotracheal tube in the mid trachea. There is an IVC filter in the inferior vena cava. Its rostral portion is at the level of the right renal vein IMPRESSION: Moderate sized hemopericardium. There is some dilatation of the vena cava suggesting cardiac tamponade Bilateral pulmonary infiltrates in the dependent portion of both upper and lower lobes No evidence of pulmonary embolus IVC filter in place
[2018-10-09] MEDS ORDERED: Midazolam 1 MG/ML 5 ML SDV IVPUSH ONE ×2 (11:22)
--- NOTE | 2018-10-09 15:18 | US ---
DuplexC [facility] CLINICAL HISTORY: Evaluate IVC size and patency FINDINGS: Real-time images were obtained through the abdomen to evaluate the IVC. Proximal portion of the IVC measures 19 mm in AP diameter. There is a normal flow pattern. The this tapers towards the IVC bifurcation measuring 1.5 cm distal IMPRESSION: Normal appearing, patent IVC
--- NOTE | 2018-10-12 11:16 | OR ---
DATE OF PROCEDURE: 10/09/2018 PREOPERATIVE DIAGNOSIS: History of deep venous thrombosis with upcoming back surgery. POSTOPERATIVE DIAGNOSES: 1. History of deep venous thrombosis with upcoming back surgery. 2. Episode of pulseless electrical activity secondary to hemopericardium. PROCEDURES: 1. Percutaneous placement of a [place] inferior vena cava filter (right internal jugular vein approach) ([id number]). 2. Intraoperative cardiopulmonary resuscitation (45372). ANESTHESIA: General. INDICATIONS FOR PROCEDURE: This is a 53-year-old male with history of previous DVT, chronically on anticoagulation long-term. He is scheduled to have back surgery later this week, and per the request of the patient's back surgeon, a vena cava filter has been requested to minimize chances of pulmonary embolism in the perioperative period. Potential risks of the procedure including bleeding, infection, vascular injury, pneumothorax during access, as well as remote possibility of cardiopulmonary, septic, or hemorrhagic complications leading to were discussed, and the patient wishes to proceed. The patient is fairly young and is likely to have multiple additional procedures over time, and given the need for long-term anticoagulation, we will place a permanent vena cava filter in this case to avoid having the process of the filter being placed and removed over potentially multiple occasions. The primary risks of the filter insertion, besides outlined above in terms of thrombosis of the vena cava at around 3% and its associated sequelae, were also reviewed with the patient, and he wished to proceed. DETAILS OF PROCEDURE: The patient was taken to the operating room and placed in the supine position. After general endotracheal anesthesia was induced, the upper chest and neck areas were prepped and draped. The right internal jugular vein was then identified by ultrasound and cannulated and the guidewire manipulated from there into the superior vena cava. Initially, the wire on several occasions passed into the right side of the heart, but eventually this was able to be passed into the inferior vena cava and, from there, slightly into the left iliac vein. A small initial stab wound was then placed at the skin puncture site, and the introducer system for the vena cava filter was then placed. This was passed down to the distal inferior vena cava, where a venogram was obtained, which confirmed no evidence of thrombosis and satisfactorily sized vena cava, which had also been seen preoperatively by duplex scan. The area was intermittently irrigated with heparin and at that point, the vena cava filter discharged at the level of the L1-L2 junction. Good seating of the filter was noted, and at that point, the catheter system was withdrawn and the skin site was closed with a [id number] stitch of 3-0 Vicryl stitch. At that point, the patient quite abruptly developed pulseless electrical activity with no palpable pulse or visible waveform on the pulse oximetry. CPR was initiated, and the patient was initially given a bolus of epinephrine over roughly 1 minute. The patient did regain a palpable pulse and appeared to stabilize from a hemodynamic standpoint. He initially was tachycardiac and hypertensive related to the epinephrine but, at that point, appeared to stabilized somewhat. An echocardiogram was obtained, which initially was felt not to contain any pericardial blood. At that point, the patient had a second episode of pulseless electrical activity, which also responded to the epinephrine and a brief period of compressions, with return of satisfactory hemodynamics. An epinephrine infusion was subsequently started, and this maintained an adequate blood pressure throughout the remainder of the patient's hospital course prior to transfer to the [facility] in [facility]. The patient was taken from the operating room to the CT scan, which showed no evidence of pulmonary embolism but did show a fairly significant hemopericardium. There were some pleural effusions present, but these were not blood density and would likely be a chronic process. The patient was subsequently taken to intensive care unit. Dr. Gracy Kelly of [facility] in [place] in [place] was contacted and agreed to receive the patient. The patient was subsequently transferred. He did remain stable hemodynamically throughout the remainder of the hospital course on the mid range epinephrine infusion. Robert Thakkar MD /[id number]
== END 2018-10-09 11:05 | DRG 347 ==
LOC: JP.SDSSCHI 07:17 → JP.SDS 07:18 → JP.ICU 10:02 → EDSTATUS 11:15
PROVIDERS: ADMIT Internal Medicine; ATTEND Surgery
PROC: 06H03DZ Insertion of Intraluminal Device into Inferior Vena Cava, Percutaneous Approach (ICD-10-PCS; principal; 2018-10-09)
PROC: 5A12012 Performance of Cardiac Output, Single, Manual (ICD-10-PCS; 2018-10-09)
PROC: 5A12012 Performance of Cardiac Output, Single, Manual (ICD-10-PCS; 2018-10-09)
DX: M54.5 Low back pain (principal); I46.9 Cardiac arrest, cause unspecified; I31.4 Cardiac tamponade; I31.3 Pericardial effusion (noninflammatory); I48.91 Unspecified atrial fibrillation; Z86.718 Personal history of other venous thrombosis and embolism; Z86.711 Personal history of pulmonary embolism; S39.82XD Other specified injuries of lower back, subsequent encounter; Z68.33 Body mass index [BMI] 33.0-33.9, adult; F32.9 Major depressive disorder, single episode, unspecified; W17.89XD Other fall from one level to another, subsequent encounter; Z87.891 Personal history of nicotine dependence; Z88.0 Allergy status to penicillin; Z79.01 Long term (current) use of anticoagulants
CPT/HCPCS: 36415; 71275; 71275-26; 80053; 83735; 84100; 85018; 85027; 85610; 93308; 93979; 93979-26; 94002; C1776; J0171; J0330; J0690; J1100; J1642; J2250; J2405; J2704; J2710; J3010; J3490; J7030; J7042; Q9967

== ENCOUNTER 2019-07-15 21:26 | Emergency (ER) | payer BC ==
--- NOTE | 2019-07-15 22:53 | EDM.PDOC ---
ED HPI GENERAL MEDICAL PROBLEM - General Chief Complaint: Upper Extremity Injury/Pain Stated Complaint: LEFT ELBOW PAIN Time Seen by Provider: 07/15/19 21:40 Source of Information: Reports: Patient, Family History Limitations: Reports: No Limitations - History of Present Illness INITIAL COMMENTS - FREE TEXT/NARRATIVE: 54-year-old male with a history of right elbow bursitis which turned into a staph infection, IV antibiotics and hospitalization now presents with pain and stiffness of his left elbow, a small effusion and some bruising behind the elbow. 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 No other injury or concerns. Onset: Gradual Duration: Day(s): (2-3 days) Location: Reports: Upper Extremity, Left Associated Symptoms: Reports: No Other Symptoms - Related Data Allergies Allergy/AdvReac Type Severity Reaction Status Date / Time Penicillins Allergy Vomiting Verified 10/09/18 07:49 Home Meds: Home Meds FLUoxetine HCl [Fluoxetine HCl] 40 mg PO BEDTIME 04/13/14 [History] Warfarin Sodium 5 mg PO BEDTIME 04/13/14 [History] Metoprolol Tartrate [Lopressor] 0.5 tab PO BID 11/07/18 [History] Past Medical History Cardiovascular History: Reports: Congenital Septal Defect, Prior Cardiac Arrest , Other (See Below) Other Cardiovascular History: julisa filter. cardiac tamponade Musculoskeletal History: Reports: Back Pain, Chronic, Other (See Below) Other Musculoskeletal History: collar bone as a teen Neurological History: Reports: Concussion, CVA Psychiatric History: Reports: Anxiety Hematologic History: Reports: Anticoagulation Therapy - Infectious Disease History Infectious Disease History: Reports: Chicken Pox - Past Surgical History Cardiovascular Surgical History: Reports: None GI Surgical History: Reports: EGD Neurological Surgical History: Reports: None Musculoskeletal Surgical History: Reports: None, Other (See Below) Other Musculoskeletal Surgeries/Procedures:: right elbow surgery for infected bursa. back surgery 2019 for bulging disc Social & Family History - Family History Family Medical History: Noncontributory Cardiac: Reports: Bypass, Stent Endocrine/Metabolic: Reports: Diabetes, Type I - Tobacco Use Smoking Status *Q: Never Smoker Second Hand Smoke Exposure: No - Caffeine Use Caffeine Use: Reports: None - Alcohol Use Days Per Week of Alcohol Use: 5 Number of Drinks Per Day: 2 Total Drinks Per Week: 10 - Recreational Drug Use Recreational Drug Use: No Review of Systems - Review of Systems Review Of Systems: See Below Constitutional: Denies: Fever Eyes: Reports: No Symptoms Respiratory: Reports: No Symptoms Cardiovascular: Denies: Chest Pain Musculoskeletal: Reports: Arm Pain (Left elbow only) Skin: Reports: Bruising (A small amount of bruising is behind the left elbow) Neurological: Denies: Paresthesia ED EXAM, GENERAL - Physical Exam Exam: See Below Exam Limited By: No Limitations General Appearance: Alert, No Apparent Distress Respiratory/Chest: No Respiratory Distress Extremities: Other (Exam is otherwise limited to the left arm. He has a slight palpable effusion of the left elbow with some bruising proximal to the olecranon. There is no erythema or redness. No warmth. He has almost full range of motion of the elbow.) Course - Vital Signs Last Recorded V/S: Last Vital Signs Temp 96.2 F 07/15/19 21:38 Pulse 78 07/15/19 21:38 Resp 16 07/15/19 21:38 BP 130/85 07/15/19 21:38 Pulse Ox 93 L 07/15/19 21:38 - Re-Assessments/Exams Free Text/Narrative Re-Assessment/Exam: 07/15/19 22:52 Because of the patient's history to be placed on Augmentin 875 twice a day for at least 7 days, given an Cortes wrap to help with swelling and can increase activity as tolerated. Recheck at any time if worsening over the next several days. Departure - Departure Time of Disposition: 23:00 Disposition: Home, Self-Care 01 Clinical Impression: Bursitis of elbow Qualifiers: Elbow bursitis location: olecranon bursitis Laterality: left Qualified Code(s) : M70.22 - Olecranon bursitis, left elbow - Discharge Information Instructions: Bursitis, [id number] Referrals: Houston Blanco Sr, MD [Primary Care Provider] - Forms: ED Department Discharge Care Plan Goals: Take antibiotic with food twice daily for at least 7 days, Cortes wrap the elbow for support and swelling and increase activity as tolerated. Return anytime if worsening such as increased redness, warmth or fever.
== END 2019-07-15 23:00 | disposition home or self-care (01) ==
LOC: JP.ED 21:26
DX: M70.22 Olecranon bursitis, left elbow (principal); Z86.73 Personal history of transient ischemic attack (TIA), and cerebral infarction without residual deficits; Z79.01 Long term (current) use of anticoagulants; Z88.0 Allergy status to penicillin
CPT/HCPCS: 99282

== ENCOUNTER 2019-08-02 06:24 | Day surgery (SDC) | payer BC ==
[2019-08-02] MEDS ORDERED: Sodium Chloride 0.9% 1,000 ML IV SCH (07:00)
[2019-08-02] MEDS ORDERED: Propofol 200 MG/20 ML SDV ONE (07:28)
[2019-08-02] MEDS ORDERED: Midazolam 1 MG/ML 2 ML SDV ONE (07:29)
[2019-08-02] MEDS ORDERED: fentaNYL 100 MCG/2 ML SDV ONE (07:29)
--- NOTE | 2019-08-03 08:39 | PROC ---
DATE OF PROCEDURE: 08/02/2019 SURGEON: Houston Blanco MD INDICATIONS: Uziar is a 54-year-old male, who comes in for a colonoscopy. He is concerned he may have polyps. The risks and benefits were explained to the patient and was taken to the OR. DESCRIPTION OF PROCEDURE: Anesthesia was given by the nurse salon leader. The Olympus 180AL scope was used, was placed into the rectum and advanced under direct vision. At 60 cm noted a small polyp on a stalk. We then advanced further and at 70 cm noted 2 other polyps. These were 2 mm and 3 mm in size. These were biopsied and put in the same containers. We then advanced the scope slowly and did get to the cecum. Upon retraction of the scope, we noted the areas that were biopsied previously at 70 cm. At 60 cm noted the larger polyp, appeared to be 8 mm in size. We snared this and retrieved. There was no significant bleeding noted from either of the biopsy sites. The tube was slowly retracted and removed, and the patient tolerated the procedure well. PREOPERATIVE DIAGNOSIS: Screening colonoscopy. POSTOPERATIVE DIAGNOSIS: Three polyps, one at 60 cm and two at 70 cm. The one at 60 cm was snared and the two at 70 cm were biopsied and removed by the biopsy snare. This gentleman will need to have a repeat colonoscopy in 1-3 years depending on the results of the biopsy pathology report. Houston Blanco MD /[id number]
== END 2019-08-02 09:20 | disposition home or self-care (01) ==
LOC: JP.SDS 06:24
PROVIDERS: ATTEND Internal Medicine
DX: Z12.11 Encounter for screening for malignant neoplasm of colon (principal); Z88.0 Allergy status to penicillin
CPT/HCPCS: 45385; J2250; J2704; J3010; J7030

== ENCOUNTER 2023-07-25 06:12 | Day surgery (SDC) | payer BC ==
[2023-07-25] MEDS ORDERED: Sodium Chloride 0.9% 1,000 ML IV SCH (07:00)
[2023-07-25] MEDS ORDERED: fentaNYL 50 MCG/ML SDV ONE (07:03)
[2023-07-25] MEDS ORDERED: Propofol 200 MG/20 ML SDV ONE ×2 (07:03→07:32)
[2023-07-25] MEDS ORDERED: Midazolam 1 MG/ML 2 ML SDV ONE (07:03)
== END 2023-07-25 09:08 | disposition home or self-care (01) ==
LOC: JP.SDS 06:12
PROVIDERS: ATTEND Internal Medicine
DX: Z12.11 Encounter for screening for malignant neoplasm of colon (principal); Z86.010 Personal history of colon polyps; F32.A Depression, unspecified
CPT/HCPCS: 45378; J2250; J2704; J3010; J7030